=== PATIENT | female | born 1970 | race American Indian/Alaskan Native ===

== ENCOUNTER 2021-08-19 18:49 | Emergency (ER) | payer SELFPAY ==
[2021-08-19] MEDS ORDERED: ASPIRIN 325 MG TAB PO ONE (20:11)
[2021-08-19 20:37] LABS: Basophils # (Auto) 0.1 K/mm3 (0.0-0.1); Basophils % (Auto) 1.1 % (0.0-1.8); Eosinophils # (Auto) 0.2 K/mm3 (0.0-0.4); Eosinophils % (Auto) 2.3 % (0.0-4.3); Hematocrit 39.7 % (30.3-42.9); Hemoglobin 12.9 gm/dl (10.1-14.3); Lymphocytes % (Auto) 42.7 % (13.4-35.0); Mean Corpuscular HGB Conc 33 % (30-34); Mean Corpuscular Volume 95 fl (79-97); Monocytes # (Auto) 0.5 K/mm3 (0.0-0.8); Monocytes % (Auto) 7.5 % (0.0-7.3); Platelet Count 329 K/mm3 (140-440)
--- NOTE | 2021-08-19 20:43 | XRay Report ---
CHEST PA AND LATERAL VIEWS INDICATION: Chest Pain. COMPARISON: None. FINDINGS: Support devices: None. Heart: Within normal limits. Lungs/Pleura: No acute pulmonary or pleural findings. IMPRESSION: 1. No acute findings. Signer Name: Iam Stover MD Signed: 08/19/2021 8:38 PM Workstation Name: [id number]
[2021-08-19 21:04] LABS: Alanine Aminotransferase 45 units/L (7-56); Albumin 4.3 g/dL (3.9-5); Blood Urea Nitrogen 11 mg/dL (7-17); Calcium 9.9 mg/dL (8.4-10.2); Hemolysis Index 6
[2021-08-19 21:12] LABS: BUN/Creatinine Ratio 22
--- NOTE | 2021-08-19 21:28 | Emergency Department Report ---
ED General Adult HPI - General Chief complaint: Chest Pain Stated complaint: CP X 4D Time Seen by Provider: 08/19/21 21:12 Source: patient Mode of arrival: Ambulatory Limitations: No Limitations - History of Present Illness Initial comments: Patient 50-year-old female who presents for left anterior chest wall pain for the past 4 days. Pain is exacerbated by anxiety and stress. Pain is relieved by nothing tried. Patient denies dizziness there is no lightheadedness no nausea no vomiting no shortness of breath no PND. Patient denies history of hypertension no diabetes no hyperlipidemia patient denies smoking patient denies substance. Pain at this time is 3/10. Severity scale (0 -10): 4 - Related Data Previous Rx's Medication Instructions Recorded Last Taken Type Ibuprofen [Motrin 800 MG tab] 800 mg PO Q8HR PRN #30 tablet 08/19/21 Unknown Rx Allergies Allergy/AdvReac Type Severity Reaction Status Date / Time No Known Allergies Allergy Unverified 08/19/21 19:00 ED Review of Systems ROS: Stated complaint: CP X 4D Other details as noted in HPI Constitutional: denies: chills, fever Eyes: denies: eye pain, eye discharge, vision change ENT: denies: ear pain, throat pain Respiratory: denies: cough, shortness of breath, wheezing Cardiovascular: chest pain. denies: palpitations, dyspnea on exertion, syncope, paroxysmal nocturnal dyspnea Endocrine: no symptoms reported Gastrointestinal: denies: abdominal pain, nausea, diarrhea Genitourinary: denies: urgency, dysuria, discharge Musculoskeletal: denies: back pain, joint swelling, arthralgia Skin: denies: rash, lesions Neurological: denies: headache, weakness, paresthesias Psychiatric: denies: anxiety, depression Hematological/Lymphatic: denies: easy bleeding, easy bruising ED Past Medical Hx - Past Medical History Previous Medical History?: No - Surgical History Additional Surgical History: THYAMUS SURGERY - Medications Home Medications: Home Medications Medication Instructions Recorded Confirmed Last Taken Type Ibuprofen [Motrin 800 MG tab] 800 mg PO Q8HR PRN #30 tablet 08/19/21 Unknown Rx ED Physical Exam - General Limitations: No Limitations General appearance: alert, in no apparent distress - Head Head exam: Present: atraumatic, normocephalic - Eye Eye exam: Present: normal appearance, EOMI Pupils: Present: normal accommodation - ENT ENT exam: Present: mucous membranes moist - Neck Neck exam: Present: normal inspection, full ROM. Absent: tenderness, lymp hadenopathy, thyromegaly - Respiratory Respiratory exam: Present: normal lung sounds bilaterally. Absent: respiratory distress, wheezes, rales, rhonchi, stridor, chest wall tenderness - Cardiovascular Cardiovascular Exam: Present: regular rate, normal rhythm, normal heart sounds. Absent: systolic murmur, diastolic murmur, rubs, gallop - GI/Abdominal GI/Abdominal exam: Present: soft, normal bowel sounds. Absent: distended, tenderness, guarding, rebound, rigid, bruit, hernia - Rectal Rectal exam: Present: deferred - Extremities Exam Extremities exam: Present: normal inspection, full ROM, normal capillary refill. Absent: tenderness, pedal edema - Back Exam Back exam: Present: normal inspection, full ROM. Absent: CVA tenderness (R), CVA tenderness (L) - Neurological Exam Neurological exam: Present: alert, oriented X3, CN II-XII intact, normal gait - Psychiatric Psychiatric exam: Present: normal affect - Skin Skin exam: Present: warm, dry, intact, normal color. Absent: rash ED Course Vital Signs 08/19/21 19:04 Temperature 98.5 F Pulse Rate 66 Respiratory 20 Rate Blood Pressure 151/80 [Right] O2 Sat by Pulse 100 Oximetry ED Medical Decision Making - Lab Data Result diagrams: 08/19/21 20:21 08/19/21 20:21 Labs 08/19/21 08/19/21 20:21 20:21 WBC 6.9 RBC 4.20 Hgb 12.9 Hct 39.7 MCV 95 MCH 31 MCHC 33 RDW 12.0 L Plt Count 329 Lymph % (Auto) 42.7 H [place] % (Auto) 7.5 H Eos % (Auto) 2.3 Baso % (Auto) 1.1 Lymph # (Auto) 3.0 [place] # (Auto) 0.5 Eos # (Auto) 0.2 Baso # (Auto) 0.1 Seg Neutrophils % 46.4 Seg Neutrophils # 3.2 Sodium 142 Potassium 4.1 Chloride 105.9 Carbon Dioxide 24 Anion Gap 16 BUN 11 Creatinine 0.5 L Estimated GFR > 60 BUN/Creatinine Ratio 22 Glucose 96 Calcium 9.9 Total Bilirubin 0.60 AST 37 ALT 45 Alkaline Phosphatase 78 Troponin T < 0.010 Total Protein 8.2 Albumin 4.3 Albumin/Globulin Ratio 1.1 Lipase 29 Labs 08/19/21 08/19/21 08/19/21 20:21 20:21 21:20 WBC 6.9 RBC 4.20 Hgb 12.9 Hct 39.7 MCV 95 MCH 31 MCHC 33 RDW 12.0 L Plt Count 329 Lymph % (Auto) 42.7 H [place] % (Auto) 7.5 H Eos % (Auto) 2.3 Baso % (Auto) 1.1 Lymph # (Auto) 3.0 [place] # (Auto) 0.5 Eos # (Auto) 0.2 Baso # (Auto) 0.1 Seg Neutrophils % 46.4 Seg Neutrophils # 3.2 Sodium 142 Potassium 4.1 Chloride 105.9 Carbon Dioxide 24 Anion Gap 16 BUN 11 Creatinine 0.5 L Estimated GFR > 60 BUN/Creatinine Ratio 22 Glucose 96 Calcium 9.9 Total Bilirubin 0.60 AST 37 ALT 45 Alkaline Phosphatase 78 Troponin T < 0.010 < 0.010 Total Protein 8.2 Albumin 4.3 Albumin/Globulin Ratio 1.1 Lipase 29 - EKG Data EKG shows normal: sinus rhythm, axis, intervals, QRS complexes, ST-T waves Rate: normal - EKG Data When compared to previous EKG there are: previous EKG unavailable 08/19/21 21:27 EKG normal sinus rhythm with occasional PACs. No ST elevated MS, EKG interpreted by ED attending. - Radiology Data Radiology results: report reviewed, image reviewed CHEST PA AND LATERAL VIEWS INDICATION: Chest Pain. COMPARISON: None. FINDINGS: Support devices: None. Heart: Within normal limits. Lungs/Pleura: No acute pulmonary or pleural findings. IMPRESSION: 1. No acute findings. Signer Name: Iam Stover MD Signed: 08/19/2021 8:38 PM Workstation Name: [id number] - Medical Decision Making Heart score 0, chest x-ray no infiltrates no opacities, EKG normal sinus rhythm with PAC no ST elevated MS interpreted by ED attending, troponin -0.01 x 2. Plan DC to home, NSAIDs as needed pain follow-up with your doctor in 2 to 3 days. Return to emergency department should symptoms worsen. Patient verbalized agreement and understanding with discharge plan. Patient DC'd home in stable condition at this time. Critical care attestation.: If time is entered above; I have spent that time in minutes in the direct care of this critically ill patient, excluding procedure time. ED Disposition Clinical Impression: Atypical chest pain Disposition: 01 HOME / SELF CARE / HOMELESS Is pt being admited?: No Does the pt Need Aspirin: No Condition: Stable Instructions: Nonspecific Chest Pain, Adult Additional Instructions: Take ibuprofen as needed for chest pain. Follow-up with your doctor in 2 to 3 days. Return to emergency department should symptoms worsen. Prescriptions: Ibuprofen [Motrin 800 MG tab] 800 mg PO Q8HR PRN #30 tablet PRN Reason: pain Referrals: PRIMARY CAREMD [Primary Care Provider] - 3-5 Days JO-ANN SILVA MD [Staff Physician] - 3-5 Days Forms: Work/School Release Form(ED) Time of Disposition: 22:09
[2021-08-19] MEDS ORDERED: ONDANSETRON 4 MG ODT TAB PO ONE (22:14)
[2021-08-19] MEDS ORDERED: ACETAMINOPHEN W/CODEINE 300-30 MG TAB PO ONE (22:14)
[2021-08-19 22:45] VITALS: BP 142/97
--- NOTE | 2021-08-20 10:54 | Electrocardiograph Report ---
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
== END 2021-08-19 22:45 | disposition home or self-care (01) ==
LOC: ED 18:49
DX: R07.89 Other chest pain (principal)
CPT/HCPCS: 36415; 71046; 80053; 83690; 84484; 85025; 93005; 99284; J3490; Q0162